=== PATIENT | male | born 1940 | race Caucasian/White ===

== ENCOUNTER 2018-11-13 21:23 | Emergency (ER) | payer MEDICARE, OTHER ==
[2018-11-13 22:16] VITALS: BP 127/42
--- NOTE | 2018-11-13 22:46 | EDM.PDOC ---
ED HPI GENERAL MEDICAL PROBLEM - General Chief Complaint: Cardiovascular Problem Stated Complaint: HEART ISSUES Time Seen by Provider: 11/13/18 22:25 Source of Information: Reports: Patient, Family History Limitations: Reports: No Limitations - History of Present Illness INITIAL COMMENTS - FREE TEXT/NARRATIVE: Elyse presents today for complaints of irregular heart rate that started at 1930 tonight. He took a 12.5mg dose of metoprolol - Related Data Allergies Allergy/AdvReac Type Severity Reaction Status Date / Time ciprofloxacin [From Cipro] AdvReac Mild Insomnia Verified 11/13/18 22:35 Home Meds: Home Meds Aspirin [Ana Chewable] 81 mg PO DAILY 08/21/13 [History] Hydrocortisone [Hydrocortisone 2.5% Crm] 1 inch TOP DAILY PRN 08/21/13 [History] *Magnesium 500 mg PO DAILY 08/22/13 [History] Gluc HCl/Csa/Soco Hy/Hyalur Ac [Glucosamine Chondroitin] 2 each PO DAILY [History] atorvaSTATin [Lipitor] 10 mg PO DAILY 07/05/16 [History] Calcium Carbonate/Vitamin D3 [Calcium 600 + Vit D Tablet] 1 tab PO DAILY [History] Cholecalciferol (Vitamin D3) [Vitamin D3] 1,000 unit PO DAILYBH 01/09/17 [ History] Temazepam [Restoril] 15 mg PO DAILY PRN 01/09/17 [History] Krill/Om3/Dha/Epa/Om6/Lip/Astx [Krill Oil 1,500 mg Softgel] 1 cap PO DAILY 11/13 [History] Metoprolol Succinate [Toprol Xl] 50 mg PO DAILY 11/13/18 [History] Metoprolol Tartrate 12.5 mg PO ASDIRECTED PRN 11/13/18 [History] Past Medical History HEENT History: Reports: Cataract, Hard of Hearing, Other (See Below) Other HEENT History: tinnitis Cardiovascular History: Reports: Afib, Arrhythmia, High Cholesterol Genitourinary History: Reports: Renal Calculus Musculoskeletal History: Reports: Other (See Below) Other Musculoskeletal History: DISH-Diffuse idiopathic skeletal hyperostosis Oncologic (Cancer) History: Reports: Prostate, Other (See Below) Other Oncologic History: skin cancer Dermatologic History: Reports: Other (See Below) Other Dermatologic History: skin cancer - Past Surgical History HEENT Surgical History: Reports: Other (See Below) Other HEENT Surgeries/Procedures: 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 GI Surgical History: Reports: Colonoscopy, Polypectomy Male Surgical History: Reports: Prostatectomy Social & Family History - Tobacco Use Smoking Status *Q: Never Smoker Second Hand Smoke Exposure: No - Caffeine Use Caffeine Use: Reports: Soda - Recreational Drug Use Recreational Drug Use: No ED ROS GENERAL - Review of Systems Review Of Systems: See Below Constitutional: Reports: No Symptoms HEENT: Reports: No Symptoms Respiratory: Denies: Shortness of Breath, Wheezing, Cough, Sputum Cardiovascular: Reports: Edema, Palpitations. Denies: Chest Pain, Blood Pressure Problem, Dyspnea on Exertion, Lightheadedness, PND, Syncope Endocrine: Reports: No Symptoms GI/Abdominal: Reports: No Symptoms Musculoskeletal: Reports: No Symptoms Skin: Reports: No Symptoms Neurological: Reports: No Symptoms Psychiatric: Reports: No Symptoms Hematologic/Lymphatic: Reports: No Symptoms Immunologic: Reports: No Symptoms ED EXAM, GENERAL - Physical Exam Exam: See Below Exam Limited By: No Limitations General Appearance: Alert, WD/WN, No Apparent Distress Eye Exam: Bilateral Eye: EOMI, PERRL Ears: Normal External Exam, Normal Canal, Hearing Grossly Normal, Normal TMs Nose: Normal Inspection, Normal Mucosa, No Blood Throat/Mouth: Normal Inspection, Normal Lips, Normal Gums, Normal Oropharynx, Normal Voice, No Airway Compromise Head: Atraumatic, Normocephalic Neck: Normal Inspection, Supple, Non-Tender, Full Range of Motion. No: Lymphadenopathy (R), Lymphadenopathy (L) Respiratory/Chest: No Respiratory Distress, Lungs Clear, Normal Breath Sounds, No Accessory Muscle Use, Chest Non-Tender Cardiovascular: Normal Peripheral Pulses, Regular Rate, Rhythm, No Gallop, No Murmur, No Rub, Other (Edema 1+ bilateral ankles) Peripheral Pulses: 2+: Radial (L), Radial (R), Dorsalis Pedis (L), Dorsalis Pedis (R) GI/Abdominal: Normal Bowel Sounds, Soft, Non-Tender, No Organomegaly, No Distention, No Mass Back Exam: Normal Inspection, Full Range of Motion. No: CVA Tenderness (R), CVA Tenderness (L) Extremities: Normal Inspection, Normal Range of Motion, Non-Tender, Normal Capillary Refill, Other (1+ edema bilateral ankles. ) Neurological: Alert, Oriented, CN II-XII Intact, Normal Cognition, Normal Gait, No Motor/Sensory Deficits Psychiatric: Normal Affect, Normal Mood Skin Exam: Warm, Dry, Intact, Normal Color, No Rash Lymphatic: No Adenopathy EKG INTERPRETATION EKG Date: 11/13/18 Time: 22:51 Rhythm: NSR Rate (Beats/Min): 57 [place]: Normal P-Wave: Present QRS: Normal ST-T: Normal QT: Normal Course - Vital Signs Last Recorded V/S: Last Vital Signs Temp 36.1 C 11/13/18 22:34 Pulse 75 11/13/18 22:34 Resp 16 11/13/18 22:34 BP 127/42 L 11/13/18 22:34 Pulse Ox 96 11/13/18 22:34 - Orders/Labs/Meds Orders: Active Orders 24 hr Category Date Time Status EKG Documentation Completion [RC] ASDIRECTED Care 11/13/18 22:36 Active EKG 12 Lead [EK] Routine Ther 11/13/18 22:36 Ordered Labs: Laboratory Tests 11/13/18 11/13/18 Range/Units 22:51 22:51 WBC 4.9 (4.5-11.0) K/uL RBC 4.77 (4.30-5.90) M/uL Hgb 14.8 (12.0-15.0) g/dL Hct 44.4 (40.0-54.0) % MCV 93 (80-98) fL MCH 31 (27-31) pg MCHC 33 (32-36) % Plt Count 153 (150-400) K/uL Neut % (Auto) 70 H (36-66) % Lymph % (Auto) 19 L (24-44) % [place] % (Auto) 10 H (2-6) % Eos % (Auto) 1 L (2-4) % Baso % (Auto) 1 (0-1) % Sodium 145 (140-148) mmol/L Potassium 4.3 (3.6-5.2) mmol/L Chloride 107 (100-108) mmol/L Carbon Dioxide 29 (21-32) mmol/L Anion Gap 9.5 (5.0-14.0) mmol/L BUN 21 H (7-18) mg/dL Creatinine 0.9 (0.8-1.3) mg/dL Est Cr Clr Drug Dosing 85.73 mL/min Estimated GFR (MDRD) > 60 (>60) Glucose 105 (74-106) mg/dL Calcium 9.3 (8.5-10.1) mg/dL Patient lab work reviewed, no acute findings. Patient will be discharged to home, continue to take metoprolol tartrate 12.5mg PO at HS. Officer notified, he is in agreement with plan. - Re-Assessments/Exams Free Text/Narrative Re-Assessment/Exam: 11/13/18 23:20 Telemetry shows no ectopy. Normal sinus rhythm. Departure - Departure Time of Disposition: 23:35 Disposition: Home, Self-Care 01 Condition: Good Clinical Impression: Palpitations Instructions: Palpitations, [id number] Referrals: Remy Gupta MD [Primary Care Provider] - Forms: ED Department Discharge Additional Instructions: You have been evaluated and treated for palpitations secondary to atrial fibrillation. Heart rate/rhythm stable in the emergency room. Lab work normal. Continue your current medications. Add Metoprolol 12.5mg tablet you take only as needed to TAKE EVERY NIGHT at the same dose. Follow up with your primary provider in the next 3 to 7 days for follow up. It is in your best interest to also follow up with cardiology after you see your primary provider. Return to the emergency room for any worsening, issues or concerns. - My Orders Last 24 Hours: My Active Orders 11/13/18 22:36 EKG Documentation Completion [RC] ASDIRECTED EKG 12 Lead [EK] Routine - Assessment/Plan Last 24 Hours: My Active Orders 11/13/18 22:36 EKG Documentation Completion [RC] ASDIRECTED EKG 12 Lead [EK] Routine Plan: Patient evaluated and treated for palpitations secondary to atrial fibrillation. Heart rate/rhythm stable in the emergency room. Lab work normal. Continue current medications. Add Metoprolol 12.5mg PO, TAKE EVERY NIGHT at the same dose. Follow up with primary provider in the next 3 to 7 days for follow up. It is in his best interest to also follow up with cardiology after seeing his primary provider. Return to the emergency room for any worsening, issues or concerns.
== END 2018-11-13 23:47 | disposition home or self-care (01) ==
LOC: JP.ED 21:23
DX: R00.2 Palpitations (principal); I48.91 Unspecified atrial fibrillation; E78.00 Pure hypercholesterolemia, unspecified; Z88.8 Allergy status to other drugs, medicaments and biological substances; Z79.82 Long term (current) use of aspirin; Z79.899 Other long term (current) drug therapy
CPT/HCPCS: 36415; 80048; 85025; 93005; 99285-25

== ENCOUNTER 2020-09-12 11:08 | Emergency (ER) | payer MEDICARE | END 2020-09-12 12:35 | disposition left against medical advice (07) | LOC: JP.ED 11:08 | DX: Z53.21 Procedure and treatment not carried out due to patient leaving prior to being seen by health care provider (principal) | CPT/HCPCS: 93005; 93010 ==

== ENCOUNTER 2022-05-03 03:36 | Emergency (ER) | payer MEDICARE ==
[2022-05-03 04:15] LABS: ESTIMATED GFR 62 mL/min (>60)
[2022-05-03 05:24] VITALS: BP 120/53; PULSE 52
== END 2022-05-03 05:10 | disposition home or self-care (01) ==
LOC: JP.ED 03:36
DX: J20.9 Acute bronchitis, unspecified (principal); I48.91 Unspecified atrial fibrillation; E78.00 Pure hypercholesterolemia, unspecified; Z20.822 Contact with and (suspected) exposure to COVID-19; Z88.1 Allergy status to other antibiotic agents; Z79.82 Long term (current) use of aspirin; Z79.899 Other long term (current) drug therapy; Z86.16 Personal history of COVID-19
CPT/HCPCS: 36415; 71046; 80053; 81001; 82728; 83605; 83615; 84145; 85025; 86140; 99283; U0002

== ENCOUNTER 2022-05-20 08:37 | Inpatient (IN) | payer MEDICARE ==
[2022-05-20] MEDS ORDERED: Sodium Chloride 0.9% 10 ML Syringe FLUSH PRN ×2 (09:49→13:35)
[2022-05-20] MEDS ORDERED: Diltiazem 25 MG/5 ML SDV IVPUSH ONE (09:50)
[2022-05-20] MEDS ORDERED: Sodium Chloride 0.9% 1,000 ML IV SCH (10:00)
[2022-05-20] MEDS ORDERED: Propofol 200 MG/20 ML SDV ONE (11:40)
[2022-05-20] MEDS ORDERED: Diltiazem 100 MG in Sodium Chloride 0.9% 100 ML IV SCH ×3 (11:45→13:35)
[2022-05-20] MEDS ORDERED: Acetaminophen 325 MG Tab PO PRN (13:35)
[2022-05-20] MEDS ORDERED: Ondansetron 4 MG/2 ML SDV IV PRN (13:35)
[2022-05-20] MEDS: Enoxaparin 40 MG/0.4 ML Syringe SUBCUT SCH (15:00)
[2022-05-20] MEDS ORDERED: Carbidopa/Levodopa 25-100 MG Tab PO SCH (17:00)
[2022-05-20] MEDS ORDERED: Carbidopa/Levodopa 50-200 MG Tab.ER PO SCH ×2 (18:30→21:00)
[2022-05-20] MEDS ORDERED: Carbidopa/Levodopa 25-100 MG Tab PO ONE (18:30)
[2022-05-20] MEDS ORDERED: Sodium Chloride 0.9% 500 ML IV ONE (19:19)
[2022-05-20] MEDS: Sodium Chloride 0.9% 1,000 ML IV SCH (19:34)
[2022-05-21] MEDS ORDERED: Melatonin 3 MG Tab PO PRN (00:17)
[2022-05-21] MEDS: Sodium Chloride 0.9% 1,000 ML IV SCH ×2 (03:35→12:47)
[2022-05-21] MEDS: Carbidopa/Levodopa 25-100 MG Tab PO SCH ×2 (08:26→12:01)
[2022-05-21] MEDS ORDERED: Magnesium Oxide 400 MG Tab PO SCH (09:00)
[2022-05-21] MEDS ORDERED: Metoprolol Succinate 25 MG Tab.ER PO SCH (09:00)
[2022-05-21] MEDS ORDERED: Potassium Chloride 20 MEQ Tab.ER PO ONE (09:00)
[2022-05-21] MEDS ORDERED: atorvaSTATin 10 MG Tab PO SCH (09:00)
[2022-05-21 13:09] VITALS: PULSE 57
[2022-05-21 14:25] VITALS: BP 117/52
[2022-05-21] MEDS: Enoxaparin 40 MG/0.4 ML Syringe SUBCUT SCH (14:32)
== END 2022-05-21 15:53 | disposition home or self-care (01) | DRG 310 ==
LOC: JP.ED 08:37 → JP.ICU 12:45
PROVIDERS: ADMIT Hospitalist; ATTEND Hospitalist
DX: I48.0 Paroxysmal atrial fibrillation (principal); M16.11 Unilateral primary osteoarthritis, right hip; M48.10 Ankylosing hyperostosis [Forestier], site unspecified; H91.90 Unspecified hearing loss, unspecified ear; E78.00 Pure hypercholesterolemia, unspecified; G20 Parkinson's disease; Z85.828 Personal history of other malignant neoplasm of skin; Z86.16 Personal history of COVID-19; Z85.46 Personal history of malignant neoplasm of prostate; Z79.899 Other long term (current) drug therapy; Z88.1 Allergy status to other antibiotic agents; Z87.440 Personal history of urinary (tract) infections; Z98.1 Arthrodesis status; Z20.822 Contact with and (suspected) exposure to COVID-19
CPT/HCPCS: 36415; 80048; 83735; 84100; 84484; 85025; 93005; J2704; J3490 ×2; J7030; 96361; 96374; 99222; 99238; 99285-25; A9270-GY; J1650; J2405; J7040; U0002

== ENCOUNTER 2023-09-07 22:51 | Emergency (ER) | payer MEDICARE ==
[2023-09-07 23:24] VITALS: BP 137/52; PULSE 66
[2023-09-08 00:50] LABS: INFLUENZA A NAA NEGATIVE (NEGATIVE); INFLUENZA B NAA NEGATIVE (NEGATIVE); RESPIRATORY SYNCYTIAL VIR NAA NEGATIVE (NEGATIVE)
[2023-09-08 00:52] LABS: CORONAVIRUS COVID-19 NAA POSITIVE (NEGATIVE)
== END 2023-09-08 00:50 | disposition home or self-care (01) ==
LOC: JP.ED 22:51
DX: U07.1 COVID-19 (principal); E78.00 Pure hypercholesterolemia, unspecified; Z88.1 Allergy status to other antibiotic agents; Z79.899 Other long term (current) drug therapy
CPT/HCPCS: 0241U; 99283

== ENCOUNTER 2024-08-16 09:12 | Emergency (ER) | payer MEDICARE ==
[2024-08-16] MEDS: Cyclobenzaprine 10 MG Tab PO ONE (09:57)
[2024-08-16] MEDS: Ketorolac 30 MG/ML SDV IM ONE (09:58)
[2024-08-16 10:43] VITALS: BP 114/46; PULSE 55
== END 2024-08-16 12:58 | disposition home or self-care (01) ==
LOC: JP.ED 09:12
DX: M54.50 Low back pain, unspecified (principal); E78.00 Pure hypercholesterolemia, unspecified; Z86.16 Personal history of COVID-19; Z90.79 Acquired absence of other genital organ(s); Z88.1 Allergy status to other antibiotic agents; Z79.899 Other long term (current) drug therapy
CPT/HCPCS: 72100; 72100-26; 96372; 99283; A9270-GY; J1885

== ENCOUNTER 2025-04-09 03:12 | Emergency (ER) | payer MEDICARE ==
[2025-04-09 03:34] LABS: BASOPHILS ABSOLUTE AUTO 0.04 K/uL (0.00-0.10); BASOPHILS PERCENT AUTO 0.6 % (0.1-1.3); EOSINOPHILS ABSOLUTE AUTO 0.08 K/uL (0.00-0.40); EOSINOPHILS PERCENT AUTO 1.2 % (0.0-5.4); IMMATURE GRAN PERCENT AUTO 0.3 % (0.0-0.7); LYMPHOCYTES ABSOLUTE AUTO 0.53 K/uL (0.8-3.3); LYMPHOCYTES PERCENT AUTO 8.0 % (11.4-47.7); MONOCYTES ABSOLUTE AUTO 0.48 K/uL (0.20-0.90); MONOCYTES PERCENT AUTO 7.2 % (3.3-12.6); NEUTROPHILS ABSOLUTE AUTO 5.50 K/uL (1.0-7.6); NEUTROPHILS PERCENT AUTO 82.7 % (40.0-78.1); PLATELET COUNT,PLT 95 K/uL (130-375); RED BLOOD CELL COUNT 3.94 M/uL (4.14-5.76); WHITE BLOOD CELL COUNT,WBC 6.7 K/uL (3.2-11.0)
[2025-04-09 03:35] LABS: IMMATURE GRAN ABSOLUTE AUTO 0.02 K/uL (0.00-0.23)
[2025-04-09] MEDS: Ketorolac 15 MG/ML SDV IVPUSH ONE (03:38)
[2025-04-09 04:00] LABS: A/G RATIO 1.2 (1.2-2.2); ALANINE AMINOTRANSFERASE,ALT 10 U/L (12-78); ASPARTATE AMNIOTRANSFERASE,AST 29 U/L (15-37); BILIRUBIN TOTAL 0.9 mg/dL (0.2-1.0); BLOOD UREA NITROGEN,BUN 25 mg/dL (7-18); CARBON DIOXIDE,CO2 30 mmol/L (21-32); CHLORIDE,CL 103 mmol/L (100-108); CREATININE 1.1 mg/dL (0.8-1.3); EST CRCL DRUG DOSING (CG) 63.57 mL/min; ESTIMATED GFR 67 mL/min (>60); GLUCOSE RANDOM 104 mg/dL (74-106); POTASSIUM,K 3.4 mmol/L (3.6-5.2); PROTEIN TOTAL,TP 6.7 g/dL (6.4-8.2); SODIUM,NA 140 mmol/L (140-148)
[2025-04-09 04:02] LABS: APPEARANCE,URINE CLEAR (CLEAR); GLUCOSE,URINE NEGATIVE (NEGATIVE); OCCULT BLOOD,URINE NEGATIVE (NEGATIVE)
[2025-04-09 04:03] LABS: EPITHELIAL CELLS,URINE RARE
[2025-04-09] MEDS: Ondansetron 4 MG/2 ML SDV IVPUSH ONE (04:51)
[2025-04-09 07:59] VITALS: BP 120/65; PULSE 68
== END 2025-04-09 08:59 ==
LOC: JP.ED 03:12
DX: S13.9XXA Sprain of joints and ligaments of unspecified parts of neck, initial encounter (principal); S33.5XXA Sprain of ligaments of lumbar spine, initial encounter; I21.4 Non-ST elevation (NSTEMI) myocardial infarction; E78.00 Pure hypercholesterolemia, unspecified; I48.91 Unspecified atrial fibrillation; Z86.16 Personal history of COVID-19; Z88.1 Allergy status to other antibiotic agents; Z79.899 Other long term (current) drug therapy; W01.0XXA Fall on same level from slipping, tripping and stumbling without subsequent striking against object, initial encounter
CPT/HCPCS: 36415; 72070; 72100; 72125; 76377; 80053; 81001; 83605; 84484; 85025; 93005; 96365; 96366; 96375; 99285; A9270; J1644; J1885; J2270; J2405

== ENCOUNTER 2025-07-02 00:12 | Emergency (ER) | payer MEDICARE ==
[2025-07-02 01:47] LABS: BASOPHILS ABSOLUTE AUTO 0.04 K/uL (0.00-0.10); BASOPHILS PERCENT AUTO 0.8 % (0.1-1.3); EOSINOPHILS ABSOLUTE AUTO 0.19 K/uL (0.00-0.40); EOSINOPHILS PERCENT AUTO 3.6 % (0.0-5.4); IMMATURE GRAN PERCENT AUTO 0.2 % (0.0-0.7); LYMPHOCYTES ABSOLUTE AUTO 0.94 K/uL (0.8-3.3); LYMPHOCYTES PERCENT AUTO 18.0 % (11.4-47.7); MONOCYTES ABSOLUTE AUTO 0.42 K/uL (0.20-0.90); MONOCYTES PERCENT AUTO 8.0 % (3.3-12.6); NEUTROPHILS ABSOLUTE AUTO 3.63 K/uL (1.0-7.6); NEUTROPHILS PERCENT AUTO 69.4 % (40.0-78.1); PLATELET COUNT,PLT 108 K/uL (130-375); RED BLOOD CELL COUNT 3.87 M/uL (4.14-5.76); WHITE BLOOD CELL COUNT,WBC 5.2 K/uL (3.2-11.0)
[2025-07-02 02:05] LABS: IMMATURE GRAN ABSOLUTE AUTO 0.01 K/uL (0.00-0.23)
[2025-07-02] MEDS: Scopalamine 1mg/3day Transdermal Patch TRDERM ONE (03:03)
[2025-07-02 03:26] VITALS: BP 92/38; PULSE 61
[2025-07-02 04:53] LABS: CREATININE 1.1 mg/dL (0.8-1.3); EST CRCL DRUG DOSING (CG) 58.76 mL/min; ESTIMATED GFR 67.0 mL/min (>60); POTASSIUM,ISTAT 4.1 mmol/L (3.5-4.9); SODIUM,ISTAT 139 mmol/L (140-148)
[2025-07-02 04:54] LABS: BASE EXCESS CAPILLARY,ISTAT 4 mmol/L; CALCIUM IONIZED,ISTAT 1.23 mmol/L (1.12-1.32); HCO3 CAPILLARY,ISTAT 29.5 mmol/L (23.0-28.0); HEMATOCRIT,ISTAT 36 % (36-48); PCO2 CAPILLARY,ISTAT 53.9 mmHg (41.0-51.0); PH CAPILLARY,ISTAT 7.35 (7.31-7.41); PO2 CAPILLARY,ISTAT 30 mmHg; TCO2 CAPILLARY,ISTAT 31 mmol/L (24-29)
== END 2025-07-02 03:22 | disposition home or self-care (01) ==
LOC: JP.ED 00:12
DX: K11.7 Disturbances of salivary secretion (principal); G20.A1 Parkinson's disease without dyskinesia, without mention of fluctuations; E78.00 Pure hypercholesterolemia, unspecified; Z86.16 Personal history of COVID-19; Z88.8 Allergy status to other drugs, medicaments and biological substances; Z79.82 Long term (current) use of aspirin; Z79.899 Other long term (current) drug therapy
CPT/HCPCS: 36415; 71045; 82330; 82565; 82803; 82947; 84132; 84295; 85014; 85025; 99284; A9270; 99283

== ENCOUNTER 2025-07-18 07:03 | Emergency (ER) | payer MEDICARE ==
[2025-07-18] MEDS ORDERED: Nitroglycerin 0.4 MG Tab.SL SL PRN (07:08)
[2025-07-18 07:36] LABS: BASOPHILS ABSOLUTE AUTO 0.04 K/uL (0.00-0.10); BASOPHILS PERCENT AUTO 0.6 % (0.1-1.3); EOSINOPHILS ABSOLUTE AUTO 0.11 K/uL (0.00-0.40); EOSINOPHILS PERCENT AUTO 1.7 % (0.0-5.4); IMMATURE GRAN PERCENT AUTO 0.2 % (0.0-0.7); LYMPHOCYTES ABSOLUTE AUTO 0.50 K/uL (0.8-3.3); LYMPHOCYTES PERCENT AUTO 7.6 % (11.4-47.7); MONOCYTES ABSOLUTE AUTO 0.64 K/uL (0.20-0.90); MONOCYTES PERCENT AUTO 9.7 % (3.3-12.6); NEUTROPHILS ABSOLUTE AUTO 5.29 K/uL (1.0-7.6); NEUTROPHILS PERCENT AUTO 80.2 % (40.0-78.1); PLATELET COUNT,PLT 91 K/uL (130-375); RED BLOOD CELL COUNT 3.80 M/uL (4.14-5.76); WHITE BLOOD CELL COUNT,WBC 6.6 K/uL (3.2-11.0)
[2025-07-18 07:47] LABS: BLOOD UREA NITROGEN,BUN 27 mg/dL (7-18); CARBON DIOXIDE,CO2 32 mmol/L (21-32); CHLORIDE,CL 102 mmol/L (100-108); CREATININE 1.0 mg/dL (0.8-1.3); ESTIMATED GFR 75 mL/min (>60); GLUCOSE RANDOM 96 mg/dL (74-106); INR 1.0; POTASSIUM,K 3.9 mmol/L (3.6-5.2); PTT,PARTIAL THROMBOPLSTIN TIME 24.9 sec (21.8-27.3); SODIUM,NA 139 mmol/L (140-148); TROPONIN I HIGH SENSITIVITY 7.8 pg/mL (<=60.3)
[2025-07-18 07:51] LABS: IMMATURE GRAN ABSOLUTE AUTO 0.01 K/uL (0.00-0.23)
[2025-07-18 08:45] LABS: CORONAVIRUS COVID-19 NAA NEGATIVE (NEGATIVE); INFLUENZA A NAA NEGATIVE (NEGATIVE); INFLUENZA B NAA NEGATIVE (NEGATIVE); RESPIRATORY SYNCYTIAL VIR NAA NEGATIVE (NEGATIVE)
[2025-07-18] MEDS: Sodium Chloride 0.9% 10 ML Syringe FLUSH PRN (08:51)
[2025-07-18] MEDS: Iopamidol 612 MG/ML 100 ML Bottle IV PRN (08:51)
[2025-07-18 10:22] VITALS: BP 123/50; PULSE 61
== END 2025-07-18 10:33 | disposition home or self-care (01) ==
LOC: JP.ED 07:03
DX: J90 Pleural effusion, not elsewhere classified (principal); M19.012 Primary osteoarthritis, left shoulder; E86.0 Dehydration; E78.00 Pure hypercholesterolemia, unspecified; I48.91 Unspecified atrial fibrillation; Z79.899 Other long term (current) drug therapy; Z88.1 Allergy status to other antibiotic agents
CPT/HCPCS: 36415; 71045; 71275; 73030; 80048; 83735; 84484; 85025; 85379; 85610; 85730; 87637; 93005; 93010; 96360; 96361; 99285; A9270; J7030; Q9967

== ENCOUNTER 2025-08-21 10:56 | Emergency (ER) | payer MEDICARE ==
[2025-08-21] MEDS: Lidocaine/Epineph/Tetracaine 3 ML Syringe TOP ONE (12:24)
[2025-08-21 14:44] VITALS: BP 109/45; PULSE 48
== END 2025-08-21 16:09 | disposition home or self-care (01) ==
LOC: JP.ED 10:56
DX: N47.2 Paraphimosis (principal); E78.00 Pure hypercholesterolemia, unspecified; Z88.1 Allergy status to other antibiotic agents; Z79.899 Other long term (current) drug therapy; Z86.16 Personal history of COVID-19; Z90.89 Acquired absence of other organs
CPT/HCPCS: 99283; A9270